=== PATIENT | male | born 1960 | race Caucasian/White ===

== ENCOUNTER 2022-07-08 12:31 | Emergency (ER) | payer BC ==
[2022-07-08] MEDS ORDERED: Sodium Chloride 0.9% 10 ML Syringe FLUSH PRN (13:13)
[2022-07-08] MEDS ORDERED: cefTRIAXone 2 GM Vial IVPUSH ONE (13:35)
[2022-07-08 13:50] LABS: ESTIMATED GFR 75 mL/min (>60)
[2022-07-08] MEDS ORDERED: Iopamidol 755 Mg/ML 75 ML Bottle IV ONE (14:39)
== END 2022-07-08 16:03 | disposition home or self-care (01) ==
LOC: FB.ED 12:31
DX: L03.115 Cellulitis of right lower limb (principal); E86.0 Dehydration; I10 Essential (primary) hypertension; I25.2 Old myocardial infarction; F17.210 Nicotine dependence, cigarettes, uncomplicated; E66.9 Obesity, unspecified; Z68.30 Body mass index [BMI] 30.0-30.9, adult; Z79.899 Other long term (current) drug therapy; Z79.82 Long term (current) use of aspirin
CPT/HCPCS: 36415; 71275; 80053; 83605; 85025; 85379; 86140; 87040; 96374; 99284; J0696; J3490; Q9967